=== PATIENT | female | born 1960 | race Caucasian/White ===

== ENCOUNTER 2017-10-10 11:44 | Day surgery (SDC) | payer BC ==
[~2017-10-10] VITALS: Ht 170.2 cm; Wt 73.1 kg
[2017-10-10 12:13] VITALS: BP 127/75; PULSE 89; TEMP 97.9
[2017-10-10] MEDS ORDERED: PRILOTC PO (12:18)
[2017-10-10] MEDS ORDERED: MULTI VITAMINS1 TAB PO (12:19)
[2017-10-10] MEDS ORDERED: ZYRTEC ALLERGY10 MG PO (12:19)
[2017-10-10] MEDS ORDERED: PROBIOTIC FORMU1 CAP PO (12:19)
[2017-10-10] MEDS ORDERED: MIRALAX PA17 GM/Dose PO (12:20)
[2017-10-10] MEDS ORDERED: DULCOLAX STOOL100 MG PO (12:20)
[2017-10-10] MEDS ORDERED: IRON PO (12:20)
[2017-10-10] MEDS ORDERED: MOTRIN 600600 MG/TAB PO (15:03)
[2017-10-10] MEDS ORDERED: NORCO 325 MG-51 TAB PO (15:03)
[2017-10-10 15:35] VITALS: BP 135/68; PULSE 81; TEMP 97.4
[2017-10-10 15:50] VITALS: BP 134/65; PULSE 71
[2017-10-10 16:05] VITALS: BP 128/64; PULSE 80
== END 2017-10-10 16:29 | disposition home or self-care (01) ==
LOC: SDCO 11:44
DX: N13.1 Hydronephrosis with ureteral stricture, not elsewhere classified (principal); N13.5 Crossing vessel and stricture of ureter without hydronephrosis; C20 Malignant neoplasm of rectum; Z79.899 Other long term (current) drug therapy; D64.9 Anemia, unspecified; J45.909 Unspecified asthma, uncomplicated
CPT/HCPCS: C1769; C1788; C2617; J0690; J1100; J1644; J2405; J2704; J3010; J7120; Q9967

== ENCOUNTER → 2018-03-02 | Outpatient (CLI) | payer BC ==
[~2018-03-02] MED LIST: AZO-STANDARD95 MG PO; CIPRO 500MG TA500 MG PO; DULCOLAX STOOL100 MG PO; FERROUSAL325 MG PO; GAS RELIEF80 MG PO; IRON PO; MIRALAX PA17 GM/Dose PO; MOTRIN 600600 MG/TAB PO; MULTI VITAMINS1 TAB PO; NORCO 325 MG-51 TAB PO; PRILOTC PO; PROBIOTIC FORMU1 CAP PO; TYLENOL 500MG500 MG PO; ZOFRAN 4MG T4 MG/TAB PO; ZYRTEC ALLERGY10 MG PO
== END ==
LOC: COL.RAD 02-26 13:00
DX: Z45.2 Encounter for adjustment and management of vascular access device (principal); C19 Malignant neoplasm of rectosigmoid junction
CPT/HCPCS: Q9967

== ENCOUNTER 2018-03-05 14:14 | Inpatient (IN) | payer BC ==
[~2018-03-05] VITALS: Ht 172.7 cm; Wt 62.0 kg
[~2018-03-05 14:14] MED LIST changes: -AZO-STANDARD95 MG PO; -CIPRO 500MG TA500 MG PO; -FERROUSAL325 MG PO; -GAS RELIEF80 MG PO; -TYLENOL 500MG500 MG PO; -ZOFRAN 4MG T4 MG/TAB PO
[2018-03-05 15:01] LABS: BASO # 0.1 (0.0-0.2); BASO % 0.5 % (0.0-2.0); EOS # 0.1 (0.0-0.7); EOS % 0.9 % (0-4.0); GRAN # 13.2 (1.4-6.5); GRAN % 88.3 % (42.2-75.2); HEMATOCRIT 39.7 % (37.0-47.0); HEMOGLOBIN 13.7 g/dl (12.5-16.0); LYMPH # 0.7 (1.2-3.4); LYMPH % 4.7 % (20.0-51.0); MEAN CELL VOLUME 78 fl (80.0-100.0); MEAN CORPUSCULAR HEMOGLOBIN 27 pg (27.0-31.0); MEAN CORPUSCULAR HGB CONC 35 g/dl (33.0-37.0); MEAN PLATELET VOLUME 8.3 fl (7.4-10.4); MONO # 0.7 (0.1-0.6); MONO % 4.8 % (1.7-9.3); PLATELET COUNT 464 K/mm3 (130-400); RED BLOOD COUNT 5.09 M/mm3 (4.10-5.30); REDCELL DISTRIBUTION WIDTH-CV 13.4 % (11.5-14.5)
[2018-03-05 15:06] LABS: PROTHROMBIN TIME 11.2 SECONDS (9.7-12.8)
[2018-03-05 15:11] LABS: ALBUMIN 4.9 gm/dL (3.5-5.0); BILIRUBIN,TOTAL 0.4 mg/dL (0.0-1.0); C-REACTIVE PROTEIN 1.2 mg/dL (0.0-0.9); CALCIUM 10.4 mg/dL (8.4-10.2); CREATININE, serum 1.51 mg/dL (0.52-1.25); POTASSIUM 4.8 mmol/L (3.4-5.0); TOTAL PROTEIN 9.1 gm/dL (6.4-8.2)
[2018-03-05] MEDS ORDERED: ZOFRAN 4MG T4 MG/TAB PO (15:37)
[2018-03-05] MEDS ORDERED: TYLENOL 500MG500 MG PO (15:39)
[2018-03-05] MEDS ORDERED: AZO-STANDARD95 MG PO (15:40)
[2018-03-05 18:26] VITALS: BP 103/50; PULSE 89; TEMP 96.9
[2018-03-05 18:27] LABS: COLLECTION METHOD CLEAN CATCH
[2018-03-05 18:47] LABS: MUCOUS Present /lpf; PH 5 (5-8); SQUAMOUS EPITHELIAL None Seen /hpf; URINE APPEARANCE Cloudy; URINE BACTERIA Moderate /hpf; URINE BILIRUBIN Negative (NEGATIVE); URINE BLOOD Negative (NEGATIVE); URINE COLOR Yellow; URINE GLUCOSE Negative (NEGATIVE); URINE KETONE Negative (NEGATIVE); URINE LEUKOCYTE ESTERASE 3+ (NEGATIVE); URINE NITRATE Negative (NEGATIVE); URINE PROTEIN(semi-quant) Negative (NEGATIVE); URINE UROBILINOGEN Negative (NEGATIVE)
[2018-03-05 20:00] VITALS: BP 99/69; PULSE 96; TEMP 97.8
[2018-03-05] MEDS ORDERED: GAS RELIEF80 MG PO (22:45)
[2018-03-05] MEDS ORDERED: FERROUSAL325 MG PO (22:47)
[2018-03-05 22:48] VITALS: BP 103/50; PULSE 82; TEMP 97.6
[2018-03-06] VITALS: BP 98/56; PULSE 86; TEMP 97.9
[2018-03-06 01:50] LABS: CALCIUM 8.6 mg/dL (8.4-10.2); CREATININE, serum 1.19 mg/dL (0.52-1.25); POTASSIUM 4.7 mmol/L (3.4-5.0)
[2018-03-06 03:51] LABS: PARTIAL THROMBOPLASTIN TIME 38.4 SECONDS (26.0-37.0)
[2018-03-06 04:00] VITALS: BP 85/51; PULSE 73; TEMP 97.6
[2018-03-06 06:01] LABS: BASO % 0.3 % (0.0-2.0); EOS # 0.1 (0.0-0.7); GRAN # 8.7 (1.4-6.5); GRAN % 88.9 % (42.2-75.2); LYMPH # 0.4 (1.2-3.4); LYMPH % 3.6 % (20.0-51.0); MEAN CELL VOLUME 80 fl (80.0-100.0); MEAN CORPUSCULAR HGB CONC 34 g/dl (33.0-37.0); MEAN PLATELET VOLUME 8.2 fl (7.4-10.4); MONO # 0.6 (0.1-0.6); MONO % 5.6 % (1.7-9.3); RED BLOOD COUNT 3.89 M/mm3 (4.10-5.30); REDCELL DISTRIBUTION WIDTH-CV 13.7 % (11.5-14.5)
[2018-03-06 06:09] LABS: HEMATOCRIT 31.2 % (37.0-47.0); HEMOGLOBIN 10.5 g/dl (12.5-16.0); MEAN CORPUSCULAR HEMOGLOBIN 27 pg (27.0-31.0)
[2018-03-06 06:10] LABS: PLATELET COUNT 261 K/mm3 (130-400)
[2018-03-06 06:19] LABS: ALBUMIN 3.2 gm/dL (3.5-5.0); BILIRUBIN,TOTAL 0.2 mg/dL (0.0-1.0); CALCIUM 8.9 mg/dL (8.4-10.2); CREATININE, serum 1.13 mg/dL (0.52-1.25); POTASSIUM 4.5 mmol/L (3.4-5.0); TOTAL PROTEIN 6.1 gm/dL (6.4-8.2)
[2018-03-06 08:00] VITALS: BP 93/56; PULSE 87; TEMP 98.2
[2018-03-06 12:00] VITALS: BP 95/51; PULSE 88; TEMP 98
[2018-03-06 16:00] VITALS: BP 115/67; PULSE 105; TEMP 98.4
[2018-03-06 20:00] VITALS: BP 98/67; PULSE 106; TEMP 97.8
[2018-03-07] VITALS: BP 91/45; PULSE 105; TEMP 98.2
[2018-03-07 04:00] VITALS: BP 92/52; PULSE 97; TEMP 98.3
[2018-03-07 05:06] LABS: BASO % 0.3 % (0.0-2.0); EOS # 0.1 (0.0-0.7); EOS % 0.8 % (0-4.0); GRAN # 9.6 (1.4-6.5); GRAN % 87.5 % (42.2-75.2); LYMPH # 0.5 (1.2-3.4); LYMPH % 4.1 % (20.0-51.0); MEAN CELL VOLUME 82 fl (80.0-100.0); MEAN CORPUSCULAR HGB CONC 33 g/dl (33.0-37.0); MEAN PLATELET VOLUME 8.2 fl (7.4-10.4); MONO # 0.7 (0.1-0.6); MONO % 6.8 % (1.7-9.3); PLATELET COUNT 243 K/mm3 (130-400); RED BLOOD COUNT 3.61 M/mm3 (4.10-5.30)
[2018-03-07 05:15] LABS: BILIRUBIN,TOTAL 0.1 mg/dL (0.0-1.0); CALCIUM 8.6 mg/dL (8.4-10.2); CREATININE, serum 0.97 mg/dL (0.52-1.25); POTASSIUM 3.7 mmol/L (3.4-5.0); TOTAL PROTEIN 6.1 gm/dL (6.4-8.2)
[2018-03-07 05:18] LABS: HEMATOCRIT 29.5 % (37.0-47.0); HEMOGLOBIN 9.8 g/dl (12.5-16.0); MEAN CORPUSCULAR HEMOGLOBIN 27 pg (27.0-31.0)
[2018-03-07 07:09] LABS: CREATININE, serum 0.98 mg/dL (0.52-1.25); FRACTIONAL EXCRETION OF NA+ 0.5 %
[2018-03-07 08:00] VITALS: BP 83/55; PULSE 79; TEMP 97.7
[2018-03-07 12:00] VITALS: BP 90/52; PULSE 80; TEMP 97.2
[2018-03-07 16:00] VITALS: BP 122/53; PULSE 93; TEMP 98.2
[2018-03-07 19:46] VITALS: BP 95/50; PULSE 97; TEMP 98.1
[2018-03-08 00:11] VITALS: BP 87/44; PULSE 81
[2018-03-08 05:18] VITALS: BP 105/60; PULSE 84
[2018-03-08 08:29] VITALS: BP 90/46; PULSE 88; TEMP 97.9
[2018-03-08] MEDS ORDERED: CIPRO 500MG TA500 MG PO (10:10)
[2018-03-08 11:14] LABS: BASO % 0.3 % (0.0-2.0); EOS # 0.1 (0.0-0.7); EOS % 1.2 % (0-4.0); GRAN # 8.8 (1.4-6.5); GRAN % 87.2 % (42.2-75.2); HEMOGLOBIN 9.8 g/dl (12.5-16.0); LYMPH # 0.5 (1.2-3.4); LYMPH % 5.1 % (20.0-51.0); MEAN CELL VOLUME 83 fl (80.0-100.0); MEAN CORPUSCULAR HEMOGLOBIN 27 pg (27.0-31.0); MEAN CORPUSCULAR HGB CONC 33 g/dl (33.0-37.0); MEAN PLATELET VOLUME 8.5 fl (7.4-10.4); MONO # 0.6 (0.1-0.6); MONO % 5.8 % (1.7-9.3); PLATELET COUNT 247 K/mm3 (130-400); RED BLOOD COUNT 3.63 M/mm3 (4.10-5.30); REDCELL DISTRIBUTION WIDTH-CV 14.1 % (11.5-14.5)
[2018-03-08 11:24] LABS: CALCIUM 9.1 mg/dL (8.4-10.2); CREATININE, serum 0.96 mg/dL (0.52-1.25); POTASSIUM 3.3 mmol/L (3.4-5.0)
== END 2018-03-08 14:32 | disposition home or self-care (01) | DRG 871 ==
LOC: COL.ER 14:14 → ICU 16:13 → MEDICAL 03-07 19:24
PROVIDERS: Emergency Medicine; Family Medicine; Hospitalist; Internal Medicine; Physician Assistant
DX: A41.9 Sepsis, unspecified organism (principal); R65.21 Severe sepsis with septic shock; N39.0 Urinary tract infection, site not specified; C19 Malignant neoplasm of rectosigmoid junction; C79.19 Secondary malignant neoplasm of other urinary organs; E87.1 Hypo-osmolality and hyponatremia; N17.9 Acute kidney failure, unspecified; E44.0 Moderate protein-calorie malnutrition; Z87.891 Personal history of nicotine dependence; Z93.2 Ileostomy status; E87.8 Other disorders of electrolyte and fluid balance, not elsewhere classified; Z68.21 Body mass index [BMI] 21.0-21.9, adult; B96.89 Other specified bacterial agents as the cause of diseases classified elsewhere
CPT/HCPCS: 99223-AI; 99233-AI; 99239; J1644; J2543; J3370; J7030; J7050; Q9967